=== PATIENT | male | born 1975 | race Caucasian/White ===

== ENCOUNTER 2019-06-30 12:52 | Inpatient (IN) | payer MEDICAID, OTHER ==
[~2019-06-30] VITALS: Ht 162.6 cm; Wt 80.7 kg
[2019-06-30 14:46] LABS: CHLORIDE 101 mEq/L (98-107)
[2019-06-30 14:47] LABS: MEAN CORPUSCULAR HEMOGLOBIN 20.1 pg (28.0-32.0); MEAN CORPUSCULAR VOLUME 66.5 fL (80.0-94.0); MEAN PLATELET VOLUME 6.9 fl (7.4-10.4); PLATELET 808 x1000/uL (130-400); RED BLOOD CELL COUNT 3.15 mill/uL (4.7-6.1); RED CELL DISTRIBUTION WIDTH 20.6 % (11.6-14.6)
[2019-06-30 14:49] LABS: HEMATOCRIT. 20.9 % (42.0-52.0); HEMOGLOBIN. 6.3 g/dL (14.0-18.0)
[2019-06-30 15:06] LABS: INR 1.1; PROTHROMBIN TIME 11.1 sec (9.6-11.0)
[2019-06-30] MEDS ORDERED: POTASSIUM CHLORIDE 20MEQ TABLET SR PO SCH (15:15)
[2019-06-30 15:18] LABS: PLATELET ESTIMATE INCREASED
[2019-06-30] MEDS ORDERED: ONDANSETRON HCL 4MG/2ML INJ IV ONE (15:30)
[2019-06-30] MEDS ORDERED: POTASSIUM CHLORIDE INJ 40 MEQ in DEXT 5% WATER 250 ML IV SCH (16:00)
[2019-06-30] MEDS ORDERED: HYDROCODONE/ACETAMINOPHEN 10/325MG TABLET PO ONE (16:00)
[2019-06-30] MEDS: MORPHINE SULFATE 2 MG/ML CPJ (NOT FOR IM USE) IV PRN (21:04)
[2019-06-30] MEDS ORDERED: MORPHINE SULFATE 2 MG/ML CPJ (NOT FOR IM USE) IV PRN (23:15)
[2019-07-01] MEDS ORDERED: SODIUM CHLORIDE 0.9% 1,000 ML IV SCH (02:30)
[2019-07-01] MEDS: LORAZEPAM 2MG/ML CPJ IV PRN ×2 (02:39→16:15)
[2019-07-01] MEDS: MORPHINE SULFATE 2 MG/ML CPJ (NOT FOR IM USE) IV PRN ×3 (02:39→21:19)
[2019-07-01] MEDS ORDERED: POTASSIUM CHLORIDE INJ 40 MEQ in DEXT 5% WATER 500 ML IV NR (03:00)
[2019-07-01] MEDS ORDERED: MAGNESIUM 2 G PREMIX 50 ML IV NR (03:00)
[2019-07-01] MEDS: ONDANSETRON HCL 4MG/2ML INJ IV PRN (03:23)
[2019-07-01 05:07] LABS: MEAN CORPUSCULAR HEMOGLOBIN 21.3 pg (28.0-32.0); MEAN CORPUSCULAR VOLUME 67.8 fL (80.0-94.0); MEAN PLATELET VOLUME 6.5 fl (7.4-10.4); PLATELET 614 x1000/uL (130-400); RED BLOOD CELL COUNT 2.96 mill/uL (4.7-6.1); RED CELL DISTRIBUTION WIDTH 21.8 % (11.6-14.6)
[2019-07-01 05:16] LABS: HEMOGLOBIN. 6.3 g/dL (14.0-18.0)
[2019-07-01 05:17] LABS: HEMATOCRIT. 20.1 % (42.0-52.0)
[2019-07-01 05:19] LABS: CHLORIDE 106 mEq/L (98-107)
[2019-07-01 05:32] LABS: PHOSPHORUS 3.9 mg/dL (2.5-4.9)
[2019-07-01 07:14] LABS: PLATELET ESTIMATE INCREASED
[2019-07-01 11:00] VITALS: BP 119/76
[2019-07-01] MEDS: THIAMINE HCL 100MG TABLET PO SCH ×2 (11:00→11:01)
[2019-07-01] MEDS: FOLIC ACID 1MG TABLET PO SCH (11:00)
[2019-07-01 12:00] VITALS: BP 119/76
[2019-07-01] MEDS: FUROSEMIDE 40MG/4ML VIAL IVP SCH ×2 (13:07→18:54)
[2019-07-01 13:16] VITALS: BP 126/82
[2019-07-01 13:29] LABS: CLARITY URINE CLEAR (CLEAR); COLOR URINE YELLOW (YELLOW); KETONES URINE NEGATIVE (NEGATIVE); LEUKOCYTE ESTERASE URINE NEGATIVE (NEGATIVE); NITRITE URINE NEGATIVE (NEGATIVE); OCCULT BLOOD URINE NEGATIVE (NEGATIVE); PH URINE 8.5 (4.5-8.0); PROTEIN URINE NEGATIVE (NEGATIVE); SPECIFIC GRAVITY URINE 1.008 (1.005-1.030); UROBILINOGEN URINE 0.2 E.U./dL (0.2-1.0)
[2019-07-01] MEDS ORDERED: VANCOMYCIN 1500MG in DEXTROSE 5% WATER 250ML IV NR (15:00)
[2019-07-01 15:28] LABS: TOTAL IRON BINDING CAPACITY 152 ug/dL (250-450)
[2019-07-01 16:00] VITALS: BP 117/65
[2019-07-01 16:05] VITALS: BP 117/65
[2019-07-01] MEDS: PIPERACILLIN/TAZOBACTAM 3.375 G in DEXT 5% WATER 100 ML IV SCH ×2 (16:15→21:19)
[2019-07-01] MEDS ORDERED: DIPHENHYDRAMINE 50MG/ML VIAL IV PRN (17:30)
[2019-07-01] MEDS ORDERED: GUAIFENESIN 200MG/10ML SUGAR FREE UDC PO PRN (17:30)
[2019-07-01] MEDS ORDERED: DOCUSATE SODIUM 100MG CAPSULE PO PRN (17:30)
[2019-07-01] MEDS ORDERED: ACETAMINOPHEN 325MG TABLET PO PRN (17:30)
[2019-07-01] MEDS ORDERED: HYDRALAZINE 20MG/ML VIAL IV PRN (17:30)
[2019-07-01] MEDS ORDERED: IPRATROPIUM/ALBUTEROL 0.5-3(2.5)MG/3ML NEB HHN PRN (17:30)
[2019-07-01] MEDS ORDERED: ACETAMINOPHEN 650MG SUPP PR PRN (17:30)
[2019-07-01 17:51] LABS: BG BASE EXCESS 4.3 mmol/L (-2.0-2.0); BG CARBOXYHEMOGLOBIN 0.3 % (0.5-1.5); BG DEOXYHEMOGLOBIN 3.7 % (0.0-5.0); BG FRACTION INSPIRED OXYGEN 21; BG HCO3 ACT 27.3 mmol/L (22.0-26.0); BG METHEMOGLOBIN 0.3 % (0.0-1.5); BG OXYGEN SATURATION 96.3 % (92.0-98.5); BG OXYHEMOGLOBIN 95.7 % (94.0-97.0); BG PCO2 34.8 mmHg (35.0-45.0); BG PH 7.513 (7.350-7.450); BG PO2 85.7 mmHg (75.0-100.0); BG SAMPLE SITE RIGHT RADIAL; BG TOTAL HEMOGLOBIN 9.1 g/dL (12.0-18.0); BG VENT MODE ROOM AIR
[2019-07-01 18:29] LABS: HEMATOCRIT 27.1 % (42.0-52.0); HEMOGLOBIN 8.6 g/dL (14.0-18.0)
[2019-07-01] MEDS: PANTOPRAZOLE SODIUM 40 MG/VIAL IV SCH (18:54)
[2019-07-01] MEDS: DEXT 5%/0.9% NACL 1,000 ML IV SCH (18:54)
[2019-07-01 20:00] VITALS: BP 111/61
[2019-07-01] MEDS: VANCOMYCIN 1 G PREMIX 200 ML IV SCH (22:56)
[2019-07-01 23:35] LABS: HEMATOCRIT 24.2 % (42.0-52.0); HEMOGLOBIN 7.6 g/dL (14.0-18.0)
[2019-07-02] VITALS (10 sets, daily range): BP systolic 107–123; BP diastolic 57–80
[2019-07-02] MEDS: LORAZEPAM 2MG/ML CPJ IV PRN (01:50)
[2019-07-02] MEDS: PIPERACILLIN/TAZOBACTAM 3.375 G in DEXT 5% WATER 100 ML IV SCH ×4 (02:00→20:26)
[2019-07-02] MEDS: MORPHINE SULFATE 2 MG/ML CPJ (NOT FOR IM USE) IV PRN ×3 (03:58→17:29)
[2019-07-02] MEDS: DEXT 5%/0.9% NACL 1,000 ML IV SCH ×2 (04:17→13:42)
[2019-07-02] MEDS: FUROSEMIDE 40MG/4ML VIAL IVP SCH ×2 (07:20→17:27)
[2019-07-02 08:24] LABS: *AMPHETAMINES SCREEN URINE NEGATIVE (NEGATIVE); *BARBITURATES SCREEN URINE NEGATIVE (NEGATIVE); *BENZODIAZEPINES SCREEN URINE NEGATIVE (NEGATIVE); *COCAINE SCREEN URINE NEGATIVE (NEGATIVE)
[2019-07-02 08:25] LABS: METHADONE URINE SCREEN NEGATIVE (NEGATIVE)
[2019-07-02 08:26] LABS: CANNABINOID URINE SCREEN PRESUMTIVE POSITIVE (NEGATIVE); OPIATES URINE SCREEN PRESUMTIVE POSITIVE (NEGATIVE); PHENCYCLIDINE URINE SCREEN NEGATIVE (NEGATIVE)
[2019-07-02] MEDS: PANTOPRAZOLE SODIUM 40 MG/VIAL IV SCH (08:54)
[2019-07-02] MEDS: FOLIC ACID 1MG TABLET PO SCH (09:00)
[2019-07-02] MEDS: THIAMINE HCL 100MG TABLET PO SCH (09:00)
[2019-07-02 10:09] LABS: HEMATOCRIT. 27.7 % (42.0-52.0); HEMOGLOBIN. 8.9 g/dL (14.0-18.0); MEAN CORPUSCULAR HEMOGLOBIN 22.9 pg (28.0-32.0); MEAN CORPUSCULAR VOLUME 71.8 fL (80.0-94.0); MEAN PLATELET VOLUME 6.7 fl (7.4-10.4); PLATELET 622 x1000/uL (130-400); RED BLOOD CELL COUNT 3.86 mill/uL (4.7-6.1)
[2019-07-02] MEDS: VANCOMYCIN 1 G PREMIX 200 ML IV SCH (10:29)
[2019-07-02] MEDS ORDERED: POTASSIUM CHLORIDE INJ 40 MEQ in DEXT 5% WATER 250 ML IV NR (13:00)
[2019-07-02 15:16] LABS: HEMATOCRIT 26.7 % (42.0-52.0); HEMOGLOBIN 8.8 g/dL (14.0-18.0)
[2019-07-02] MEDS: HYDROCODONE/ACETAMINOPHEN 10/325MG TABLET PO PRN (20:25)
[2019-07-03] VITALS: BP 105/54
[2019-07-03] MEDS: PIPERACILLIN/TAZOBACTAM 3.375 G in DEXT 5% WATER 100 ML IV SCH ×4 (01:02→20:04)
[2019-07-03] MEDS: HYDROCODONE/ACETAMINOPHEN 10/325MG TABLET PO PRN ×4 (01:08→19:08)
[2019-07-03 04:00] VITALS: BP 100/52
[2019-07-03] MEDS: DEXT 5%/0.9% NACL 1,000 ML IV SCH (04:57)
[2019-07-03] MEDS: FUROSEMIDE 40MG/4ML VIAL IVP SCH ×2 (06:11→16:42)
[2019-07-03 07:07] LABS: BASOPHILS % 0.3 % (0.0-2.0); EOSINOPHILS % 0.8 % (0.0-5.0); HEMOGLOBIN. 8.6 g/dL (14.0-18.0); LYMPHOCYTES % 9.7 % (20.0-50.0); MEAN CORPUSCULAR HEMOGLOBIN 23.2 pg (28.0-32.0); MEAN CORPUSCULAR VOLUME 72.8 fL (80.0-94.0); MEAN PLATELET VOLUME 6.6 fl (7.4-10.4); MONOCYTES % 6.4 % (2.0-8.0); NEUTROPHILS % 82.8 % (40.0-76.0); PLATELET 574 x1000/uL (130-400); RED CELL DISTRIBUTION WIDTH 23.4 % (11.6-14.6)
[2019-07-03 07:44] LABS: PLATELET ESTIMATE INCREASED
[2019-07-03 08:00] VITALS: BP 102/60
[2019-07-03] MEDS: THIAMINE HCL 100MG TABLET PO SCH (08:30)
[2019-07-03] MEDS: PANTOPRAZOLE SODIUM 40 MG/VIAL IV SCH (08:30)
[2019-07-03] MEDS: FOLIC ACID 1MG TABLET PO SCH (08:30)
[2019-07-03 12:00] VITALS: BP 100/61
[2019-07-03] MEDS ORDERED: POTASSIUM CHLORIDE INJ 40 MEQ in DEXT 5% WATER 250 ML IV NR (12:00)
[2019-07-03] MEDS ORDERED: POTASSIUM CHLORIDE 10MEQ TABLET SR PO SCH (16:00)
[2019-07-03 18:13] VITALS: BP 112/65
[2019-07-03 20:00] VITALS: BP 110/54
[2019-07-04] VITALS: BP 109/54
[2019-07-04] MEDS: PIPERACILLIN/TAZOBACTAM 3.375 G in DEXT 5% WATER 100 ML IV SCH ×3 (01:33→13:49)
[2019-07-04] MEDS: DEXT 5%/0.9% NACL 1,000 ML IV SCH (01:33)
[2019-07-04] MEDS: HYDROCODONE/ACETAMINOPHEN 10/325MG TABLET PO PRN (01:36)
[2019-07-04 04:00] VITALS: BP 117/56
[2019-07-04] MEDS: FUROSEMIDE 40MG/4ML VIAL IVP SCH ×2 (06:22→17:22)
[2019-07-04] MEDS: MORPHINE SULFATE 2 MG/ML CPJ (NOT FOR IM USE) IV PRN ×2 (06:22→11:25)
[2019-07-04 08:00] VITALS: BP 104/56
[2019-07-04] MEDS: THIAMINE HCL 100MG TABLET PO SCH (09:47)
[2019-07-04] MEDS: PANTOPRAZOLE SODIUM 40 MG/VIAL IV SCH (09:47)
[2019-07-04] MEDS: FOLIC ACID 1MG TABLET PO SCH (09:47)
[2019-07-04] MEDS: ONDANSETRON HCL 4MG/2ML INJ IV PRN (11:30)
[2019-07-04 12:00] VITALS: BP 118/68
[2019-07-04 12:43] LABS: BASOPHILS % 0.3 % (0.0-2.0); EOSINOPHILS % 0.3 % (0.0-5.0); HEMATOCRIT. 27.1 % (42.0-52.0); HEMOGLOBIN. 8.9 g/dL (14.0-18.0); LYMPHOCYTES % 7.6 % (20.0-50.0); MEAN CORPUSCULAR HEMOGLOBIN 23.5 pg (28.0-32.0); MEAN CORPUSCULAR VOLUME 71.6 fL (80.0-94.0); MEAN PLATELET VOLUME 6.7 fl (7.4-10.4); MONOCYTES % 5.8 % (2.0-8.0); PLATELET 557 x1000/uL (130-400); RED BLOOD CELL COUNT 3.78 mill/uL (4.7-6.1); RED CELL DISTRIBUTION WIDTH 24.3 % (11.6-14.6)
[2019-07-04] MEDS ORDERED: POTASSIUM CHLORIDE 20MEQ TABLET SR PO NR ×2 (14:00→18:00)
[2019-07-04 16:00] VITALS: BP 116/67
[2019-07-04] MEDS ORDERED: VANCOMYCIN 1250MG in DEXTROSE 5% WATER 250ML IV SCH (16:30)
== END 2019-07-04 21:40 | disposition left against medical advice (07) | DRG 247 ==
LOC: ER 13:18 → 5WST 18:33 → EDBEDREQSVC 18:37 → EDBEDREQ 18:37 → ENRESERV 07-01 07:49
PROVIDERS: ADMIT Internal Medicine; ATTEND Internal Medicine
PROC: 30233N1 Transfusion of Nonautologous Red Blood Cells into Peripheral Vein, Percutaneous Approach (ICD-10-PCS; principal; 2019-06-30)
DX: K56.600 Partial intestinal obstruction, unspecified as to cause (principal); E43 Unspecified severe protein-calorie malnutrition; C18.9 Malignant neoplasm of colon, unspecified; N13.30 Unspecified hydronephrosis; D63.0 Anemia in neoplastic disease; D47.3 Essential (hemorrhagic) thrombocythemia; E87.6 Hypokalemia; N26.1 Atrophy of kidney (terminal); R74.8 Abnormal levels of other serum enzymes; Z53.29 Procedure and treatment not carried out because of patient's decision for other reasons; Z91.19 Patient's noncompliance with other medical treatment and regimen; Z93.3 Colostomy status; Z68.30 Body mass index [BMI] 30.0-30.9, adult; Z79.899 Other long term (current) drug therapy; Z85.038 Personal history of other malignant neoplasm of large intestine
CPT/HCPCS: 36415; 36600; 71045; 71250; 74018; 74176; 80048; 80053; 80061; 80076; 80202; 80305; 81003; 82105; 82270; 82375; 82378; 82805; 83540; 83550; 83735; 83880; 84100; 84443; 85014; 85018; 85025; 86301; 86850; 86900; 86920; 93970; 97162; 99285; A6261; C9113; J1940; J2060; J2270; J2405; J2543; J3370; J3475; J3480; J7040; J7042; J7060; P9016